=== PATIENT | female | born 1995 | race American Indian/Alaskan Native ===

== ENCOUNTER 2020-09-18 08:34 | Emergency (ER) | payer OTHER ==
[2020-09-18] MEDS ORDERED: LACTATED RINGERS 1,000 ML IV ONE (08:43)
--- NOTE | 2020-09-18 08:44 | Emergency Department Report ---
ED General Adult HPI - General Stated complaint: 4 WEEKS /DEHYDRATION/LIGHT HEADED/WEAK Time Seen by Provider: 09/18/20 08:42 - History of Present Illness Initial comments: 25-year-old -Swiss female patient presents with complaints of nausea and vomiting and weakness x9 days. Patient states she is about 5 weeks and has a history of hyperemesis gravidarum in her previous . She is G2, . She denies any hematemesis/coffee-ground emesis, chest pain, shortness of breath, vaginal bleeding, dysuria/hematuria, dyspareunia/vaginal discharge, or fever/chills/sweats. She does report some abdominal pain that she describes as burning and cramping and rates it as a 7/10 in severity. She is not currently following with an OCCUPATIONAL HEALTH AND SAFETY OFFICER - Related Data Previous Rx's Medication Instructions Recorded Last Taken Type Ondansetron [Zofran Odt] 4 mg PO Q8HR PRN #10 tab.rapdis 10/07/18 Unknown Rx Metoclopramide [Reglan] 10 mg PO TID PRN #40 tab 09/18/20 Unknown Rx diphenhydrAMINE [Benadryl CAP] 25 mg PO TID PRN #40 capsule 09/18/20 Unknown Rx Allergies Allergy/AdvReac Type Severity Reaction Status Date / Time No Known Allergies Allergy Unverified 10/07/18 12:13 ED Review of Systems ROS: Stated complaint: 4 WEEKS /DEHYDRATION/LIGHT HEADED/WEAK Other details as noted in HPI Constitutional: denies: diaphoresis, fever, malaise Respiratory: denies: cough, shortness of breath Cardiovascular: denies: palpitations Gastrointestinal: abdominal pain, nausea, vomiting. denies: diarrhea, constipation, hematemesis, melena, hematochezia Genitourinary: denies: urgency, dysuria, frequency, hematuria, discharge, abnormal menses, dyspareunia Musculoskeletal: denies: back pain Skin: denies: change in color Neurological: denies: headache, numbness, paresthesias Hematological/Lymphatic: denies: swollen glands ED Past Medical Hx - Social History Smoking Status: Current Every Day Smoker Substance Use Type: Marijuana - Medications Home Medications: Home Medications Medication Instructions Recorded Confirmed Last Taken Type Ondansetron [Zofran Odt] 4 mg PO Q8HR PRN #10 tab.rapdis 10/07/18 Unknown Rx Metoclopramide [Reglan] 10 mg PO TID PRN #40 tab 09/18/20 Unknown Rx diphenhydrAMINE [Benadryl CAP] 25 mg PO TID PRN #40 capsule 09/18/20 Unknown Rx ED Physical Exam - General General appearance: alert, in no apparent distress - Head Head exam: Present: atraumatic, normocephalic - Eye Eye exam: Present: normal appearance. Absent: scleral icterus - ENT ENT exam: Present: mucous membranes moist - Neck Neck exam: Present: normal inspection - Respiratory Respiratory exam: Present: normal lung sounds bilaterally. Absent: respiratory distress - Cardiovascular Cardiovascular Exam: Present: normal rhythm, tachycardia - GI/Abdominal GI/Abdominal exam: Present: soft, tenderness (Mild generalized), normal bowel sounds. Absent: distended, guarding, rebound, rigid - Back Exam Back exam: Present: full ROM. Absent: CVA tenderness (R), CVA tenderness (L) - Neurological Exam Neurological exam: Present: alert, oriented X3, normal gait - Psychiatric Psychiatric exam: Present: normal affect, normal mood - Skin Skin exam: Present: warm, dry, intact, normal color. Absent: rash ED Course Vital Signs 09/18/20 09/18/20 09/18/20 08:44 12:28 12:31 Temperature 98.0 F Pulse Rate 125 H 98 H Respiratory 20 Rate Blood Pressure 160/97 98/54 [Right] O2 Sat by Pulse 99 99 Oximetry ED Medical Decision Making - Lab Data Result diagrams: 09/18/20 Unknown 09/18/20 Unknown - Medical Decision Making 25-year-old -Swiss female patient presents with complaints of nausea and vomiting and weakness x9 days. Patient states she is about 5 weeks and has a history of hyperemesis gravidarum in her previous . She is G2, . She denies any hematemesis/coffee-ground emesis, chest pain, shortness of breath, vaginal bleeding, dysuria/hematuria, dyspareunia/vaginal discharge, or fever/chills/sweats. She does report some abdominal pain that she describes as burning and cramping and rates it as a 7/10 in severity. She is not currently following with an OCCUPATIONAL HEALTH AND SAFETY OFFICER Mild abdominal pain noted on exam that is generalized. She denied vaginal bleeding. No significant abnormalities noted on CBC. Anion gap =18. UA is WNL. Heart rate initially 125 upon arrival. Patient given 1 L of LR, Reglan, and Benadryl. Heart rate now = 98. She is tolerating foods and fluids p.o. Ultrasound shows viable 7-week IUP without any abnormalities. Patient states she is feeling well. She is nontoxic appearing and stable for discharge home. Recommend follow-up with OCCUPATIONAL HEALTH AND SAFETY OFFICER within 5 days. Strict return precautions were discussed in detail with patient who verbalizes understanding. Critical care attestation.: If time is entered above; I have spent that time in minutes in the direct care of this critically ill patient, excluding procedure time. ED Disposition Clinical Impression: Hyperemesis gravidarum Disposition: DC- TO HOME OR SELFCARE Is pt being admited?: No Condition: Stable Instructions: Hyperemesis Gravidarum Prescriptions: diphenhydrAMINE [Benadryl CAP] 25 mg PO TID PRN #40 capsule PRN Reason: Nausea Metoclopramide [Reglan] 10 mg PO TID PRN #40 tab PRN Reason: Nausea Referrals: [facility] [Provider Group] - 3-5 Days
[2020-09-18] MEDS ORDERED: METOCLOPRAMIDE 10 MG/2 ML INJ IV ONE (08:48)
[2020-09-18] MEDS ORDERED: diphenhydrAMINE 50 MG/ML VIAL IV ONE (08:48)
[2020-09-18 09:19] LABS: Hematocrit 46.2 % (30.3-42.9); Hemoglobin 15.4 gm/dl (10.1-14.3); Mean Corpuscular Volume 82 fl (79-97); Red Blood Count 5.62 M/mm3 (3.65-5.03)
[2020-09-18 09:20] LABS: Basophils % (Auto) 0.4 % (0.0-1.8); Eosinophils # (Auto) 0.1 K/mm3 (0.0-0.4); Eosinophils % (Auto) 0.6 % (0.0-4.3); Lymphocytes # (Auto) 1.6 K/mm3 (1.2-5.4); Lymphocytes % (Auto) 17.2 % (13.4-35.0); Mean Corpuscular HGB Conc 33 % (30-34); Monocytes # (Auto) 0.6 K/mm3 (0.0-0.8); Monocytes % (Auto) 6.3 % (0.0-7.3); Platelet Count 263 K/mm3 (140-440); Red Cell Distribution Width 15.3 % (13.2-15.2)
[2020-09-18 09:36] LABS: Alanine Aminotransferase 11 units/L (7-56); Albumin 4.5 g/dL (3.9-5); Blood Urea Nitrogen 11 mg/dL (7-17); Calcium 9.8 mg/dL (8.4-10.2); Hemolysis Index 7
[2020-09-18 09:45] LABS: BUN/Creatinine Ratio 18
--- NOTE | 2020-09-18 10:10 | Ultrasound Report ---
FIRSTTRIMESTER OBSTETRIC ULTRASOUND HISTORY: Pain, sore from morning sickness, no sharp pain per patient COMPARISON: None. TECHNIQUE: Routine transabdominal OB ultrasound performed. FINDINGS: Uterus: Mildly enlarged measuring 3.2 x 1.9 x 1.6 cm. Gestational Sac: Well-defined oval shape and intrauterine in location. Yolk Sac: Normal in appearance. Fetus/Embryo: [place]-rump length of 0.96 cm, corresponding to an estimated gestational age of 7 weeks 0 days. Embryonic/ anatomy is too small for evaluation. Embryonic/ cardiac activity: 147bpm Placenta: Too small for evaluation. Amniotic fluid volume: Subjectively appropriate for gestational age. Ovaries: The right ovary is normal in size and appearance with normal blood flow, measuring 3.2 x 1. 9 x 1.6 cm. The left ovary is normal in size and appearance with normal blood flow, measuring 4.1 x 1.5 x 1.5 cm. Additional findings: None. IMPRESSION Early live intrauterine . No acute abnormality is detected. Signer Name: Nato Londono Jr, MD Signed: 09/18/2020 10:06 AM Workstation Name: [id number]
[2020-09-18 11:47] LABS: Bilirubin,Urine NEG (Negative); Blood,Urine NEG (Negative); Color,Urine Yellow (Yellow); Mucus,Urine 3+ /HPF
[2020-09-18 12:31] VITALS: BP 98/54
== END 2020-09-18 12:31 | disposition home or self-care (01) ==
LOC: ED 08:34
DX: O21.0 Mild hyperemesis gravidarum (principal); O99.331 Smoking (tobacco) complicating pregnancy, first trimester; F12.10 Cannabis abuse, uncomplicated; Z79.899 Other long term (current) drug therapy; Z3A.01 Less than 8 weeks gestation of pregnancy
CPT/HCPCS: 36415; 76801; 80053; 81001; 83690; 84702; 85025; 96361; 96374; 96375; 99284; J1200; J2765; J7120

== ENCOUNTER 2021-01-14 08:28 | Emergency (ER) | payer OTHER ==
--- NOTE | 2021-01-14 10:56 | Event Note ---
ED Screening Note ED Screening Note: n/v for 6 days states she cannot tolerate po intake states she feels dehydrated she states she believes she is LNMP November 26 mild abd cramping no diarrhea no fever no vaginal bleeding pmhx gastritis, anxiety +marijuana /P:1/A:2 (one , one miscarriage) This initial assessment/diagnostic orders/clinical plan/treatment(s) is/are subject to change based on patients health status, clinical progression and re- assessment by fellow clinical providers in the ED. Further treatment and workup at subsequent clinical providers discretion. Patient/guardian urged not to elope from the ED as their condition may be serious if not clinically assessed and managed. Initial orders include: labs, ua
[2021-01-14 11:14] LABS: Bilirubin,Urine NEG (Negative); Blood,Urine NEG (Negative); Color,Urine Yellow (Yellow); Mucus,Urine 3+ /HPF; Urobilinogen,Urine < 2.0 mg/dL (<2.0)
[2021-01-14 11:58] LABS: Basophils % (Auto) 0.3 % (0.0-1.8); Eosinophils % (Auto) 0.4 % (0.0-4.3); Hemoglobin 13.6 gm/dl (10.1-14.3); Lymphocytes # (Auto) 1.7 K/mm3 (1.2-5.4); Lymphocytes % (Auto) 15.9 % (13.4-35.0); Mean Corpuscular HGB Conc 33 % (30-34); Mean Corpuscular Volume 81 fl (79-97); Monocytes # (Auto) 0.7 K/mm3 (0.0-0.8); Monocytes % (Auto) 6.1 % (0.0-7.3); Platelet Count 317 K/mm3 (140-440); Red Blood Count 5.08 M/mm3 (3.65-5.03); Red Cell Distribution Width 16.2 % (13.2-15.2)
[2021-01-14 12:19] LABS: Alanine Aminotransferase 12 units/L (7-56); Albumin 4.6 g/dL (3.9-5); Blood Urea Nitrogen 15 mg/dL (7-17); Calcium 9.6 mg/dL (8.4-10.2); Hemolysis Index 0
[2021-01-14 12:20] LABS: BUN/Creatinine Ratio 30
--- NOTE | 2021-01-14 14:43 | Ultrasound Report ---
ULTRASOUND OBSTETRIC Indication: , cramping, vomiting Findings: There is a single, living intrauterine . [place]-rump length = 0.9 cm = 6 weeks, 6 day(s). heart rate is 125 beats per minute. The ovaries are normal. There is no free fluid. Impression: Single, living intrauterine with estimated sonographic age of 6 weeks, 6 day(s). Signer Name: Timi Hernandez MD Signed: 01/14/2021 2:39 PM Workstation Name: [id number]
[2021-01-14] MEDS ORDERED: METOCLOPRAMIDE 10 MG/2 ML INJ IV ONE (14:51)
[2021-01-14] MEDS ORDERED: SODIUM CHLORIDE 0.9% 1000 ML 1,000 ML IV ONE (14:51)
--- NOTE | 2021-01-14 16:12 | Emergency Department Report ---
ED N/V/D HPI - General Chief complaint: Abdominal Pain Stated complaint: DEHYDRATION/VOMITTING/MUSCEL PAIN Time Seen by Provider: 01/14/21 10:54 Source: patient Mode of arrival: Ambulatory Limitations: No Limitations - History of Present Illness Initial comments: This is a 25-year-old female A2 nontoxic, well nourished in appearance, no acute signs of distress presents to the ED with c/o of nausea and vomiting 6 days. Last menstrual cycle November 26, 2020. Patient denies any knowledge of her being . Stated has some pelvic cramping. Patient otherwise denies any other complaints or symptoms. Denies any vaginal bleeding. Denies any upper abdominal pain. Patient describes vomiting as food content. Patient denies any upper abdominal pain, chest pain, short of breath, fever, chills, headache, stiff neck, numbness or tingling. Patient denies any diarrhea or constipation. Denies any blood in stool. Patient denies any recent travels. Patient denies any drug allergies significant past medical history. MD complaint: nausea, vomiting -: days(s) Description of Vomiting: food contents Radiation: none Severity: mild Pain Scale: 2 Quality: cramping Consistency: intermittent Improves with: none Worsens with: none Associated Symptoms: nausea/vomiting. denies: myalgias, chest pain, cough, diaphoresis, fever/chills, headaches, loss of appetite, malaise, rash, dysuria, shortness of breath, syncope, weakness - Related Data Previous Rx's Medication Instructions Recorded Last Taken Type Ondansetron [Zofran Odt] 4 mg PO Q8HR PRN #10 tab.rapdis 10/07/18 Unknown Rx Metoclopramide [Reglan] 10 mg PO TID PRN #40 tab 09/18/20 Unknown Rx diphenhydrAMINE [Benadryl CAP] 25 mg PO TID PRN #40 capsule 09/18/20 Unknown Rx Metoclopramide [Reglan] 10 mg PO Q12H PRN #12 tab 01/14/21 Unknown Rx 21/Iron Fu/Folic Acid 1 each PO DAILY #30 tablet 01/14/21 Unknown Rx [ Complete Caplet] Allergies Allergy/AdvReac Type Severity Reaction Status Date / Time No Known Allergies Allergy Unverified 10/07/18 12:13 ED Review of Systems ROS: Stated complaint: DEHYDRATION/VOMITTING/MUSCEL PAIN Other details as noted in HPI Comment: All other systems reviewed and negative Constitutional: denies: chills, fever Eyes: denies: eye pain, eye discharge, vision change ENT: denies: ear pain, throat pain Respiratory: denies: cough, shortness of breath, wheezing Cardiovascular: denies: chest pain, palpitations Endocrine: no symptoms reported Gastrointestinal: nausea, vomiting. denies: abdominal pain, diarrhea, constipat ion, hematemesis, hematochezia Genitourinary: denies: urgency, dysuria, frequency, hematuria, discharge, abnormal menses, dyspareunia Musculoskeletal: denies: back pain, joint swelling, arthralgia Skin: denies: rash, lesions Neurological: denies: headache, weakness, paresthesias Psychiatric: denies: anxiety, depression Hematological/Lymphatic: denies: easy bleeding, easy bruising ED Past Medical Hx - Past Medical History Previous Medical History?: Yes Hx Psychiatric Treatment: Yes (anxiety) Additional medical history: gastritis - Surgical History Past Surgical History?: No - Social History Smoking Status: Never Smoker Substance Use Type: None - Medications Home Medications: Home Medications Medication Instructions Recorded Confirmed Last Taken Type Ondansetron [Zofran Odt] 4 mg PO Q8HR PRN #10 tab.rapdis 10/07/18 Unknown Rx Metoclopramide [Reglan] 10 mg PO TID PRN #40 tab 09/18/20 Unknown Rx diphenhydrAMINE [Benadryl CAP] 25 mg PO TID PRN #40 capsule 09/18/20 Unknown Rx Metoclopramide [Reglan] 10 mg PO Q12H PRN #12 tab 01/14/21 Unknown Rx 21/Iron Fu/Folic Acid 1 each PO DAILY #30 tablet 01/14/21 Unknown Rx [ Complete Caplet] ED Physical Exam - General Limitations: No Limitations General appearance: alert, in no apparent distress - Head Head exam: Present: atraumatic, normocephalic - Eye Eye exam: Present: normal appearance - Neck Neck exam: Present: normal inspection, full ROM. Absent: tenderness, meningismu s, lymphadenopathy - Respiratory Respiratory exam: Present: normal lung sounds bilaterally. Absent: respiratory distress, wheezes, rales, rhonchi, stridor, chest wall tenderness, accessory muscle use, decreased breath sounds, prolonged expiratory - Cardiovascular Cardiovascular Exam: Present: regular rate, normal rhythm, tachycardia, normal heart sounds. Absent: bradycardia, irregular rhythm, systolic murmur, diastolic murmur, rubs, gallop - GI/Abdominal GI/Abdominal exam: Present: soft, normal bowel sounds. Absent: distended, tenderness, guarding, rebound, rigid, diminished bowel sounds - Extremities Exam Extremities exam: Present: normal inspection, full ROM - Back Exam Back exam: Present: normal inspection, full ROM. Absent: tenderness, CVA tenderness (R), CVA tenderness (L), muscle spasm, paraspinal tenderness, vertebral tenderness, rash noted - Neurological Exam Neurological exam: Present: alert, oriented X3, normal gait - Psychiatric Psychiatric exam: Present: normal affect, normal mood - Skin Skin exam: Present: warm, dry, intact, normal color. Absent: rash ED Course Vital Signs 01/14/21 01/14/21 08:46 16:22 Temperature 98.7 F 98.4 F Pulse Rate 125 H 96 H Respiratory 18 18 Rate Blood Pressure 140/81 Blood Pressure 129/62 [Right] O2 Sat by Pulse 99 100 Oximetry - Reevaluation(s) Reevaluation #1: 01/14/21 16:12 Patient is speaking in full sentences with no signs of distress noted. ED Medical Decision Making - Lab Data Result diagrams: 01/14/21 11:43 01/14/21 11:43 Lab Results 01/14/21 01/14/21 01/14/21 Range/Units 11:43 11:43 11:43 WBC 10.9 (4.5-11.0) K/mm3 RBC 5.08 H (3.65-5.03) M/mm3 Hgb 13.6 (10.1-14.3) gm/dl Hct 41.0 (30.3-42.9) % MCV 81 (79-97) fl MCH 27 L (28-32) pg MCHC 33 (30-34) % RDW 16.2 H (13.2-15.2) % Plt Count 317 (140-440) K/mm3 Lymph % (Auto) 15.9 (13.4-35.0) % [place] % (Auto) 6.1 (0.0-7.3) % Eos % (Auto) 0.4 (0.0-4.3) % Baso % (Auto) 0.3 (0.0-1.8) % Lymph # (Auto) 1.7 (1.2-5.4) K/mm3 [place] # (Auto) 0.7 (0.0-0.8) K/mm3 Eos # (Auto) 0.0 (0.0-0.4) K/mm3 Baso # (Auto) 0.0 (0.0-0.1) K/mm3 Seg Neutrophils % 77.3 H (40.0-70.0) % Seg Neutrophils # 8.4 H (1.8-7.7) K/mm3 Sodium 137 (137-145) mmol/L Potassium 4.7 (3.6-5.0) mmol/L Chloride 97.2 L (98-107) mmol/L Carbon Dioxide 23 (22-30) mmol/L Anion Gap 22 mmol/L BUN 15 (7-17) mg/dL Creatinine 0.5 L (0.6-1.2) mg/dL Estimated GFR > 60 ml/min BUN/Creatinine Ratio 30 % Glucose 66 (65-100) mg/dL Calcium 9.6 (8.4-10.2) mg/dL Total Bilirubin 0.40 (0.1-1.2) mg/dL AST 19 (5-40) units/L ALT 12 (7-56) units/L Alkaline Phosphatase 83 (35-129) units/L Total Protein 8.4 H (6.3-8.2) g/dL Albumin 4.6 (3.9-5) g/dL Albumin/Globulin Ratio 1.2 % Lipase 22 (13-60) units/L HCG, Quant 51441 H (0-4) mIU/mL Urine Color (Yellow) Urine Turbidity (Clear) Urine pH (5.0-7.0) Ur Specific [place] (1.003-1.030) Urine Protein (Negative) mg/dL Urine Glucose (UA) (Negative) mg/dL Urine Ketones (Negative) mg/dL Urine Blood (Negative) Urine Nitrite (Negative) Urine Bilirubin (Negative) Urine Urobilinogen (<2.0) mg/dL Ur Leukocyte Esterase (Negative) Urine WBC (Auto) (0.0-6.0) /HPF Urine RBC (Auto) (0.0-6.0) /HPF U Epithel Cells (Auto) (0-13.0) /HPF Urine Mucus /HPF 01/14/21 Range/Units Unknown WBC (4.5-11.0) K/mm3 RBC (3.65-5.03) M/mm3 Hgb (10.1-14.3) gm/dl Hct (30.3-42.9) % MCV (79-97) fl MCH (28-32) pg MCHC (30-34) % RDW (13.2-15.2) % Plt Count (140-440) K/mm3 Lymph % (Auto) (13.4-35.0) % [place] % (Auto) (0.0-7.3) % Eos % (Auto) (0.0-4.3) % Baso % (Auto) (0.0-1.8) % Lymph # (Auto) (1.2-5.4) K/mm3 [place] # (Auto) (0.0-0.8) K/mm3 Eos # (Auto) (0.0-0.4) K/mm3 Baso # (Auto) (0.0-0.1) K/mm3 Seg Neutrophils % (40.0-70.0) % Seg Neutrophils # (1.8-7.7) K/mm3 Sodium (137-145) mmol/L Potassium (3.6-5.0) mmol/L Chloride (98-107) mmol/L Carbon Dioxide (22-30) mmol/L Anion Gap mmol/L BUN (7-17) mg/dL Creatinine (0.6-1.2) mg/dL Estimated GFR ml/min BUN/Creatinine Ratio % Glucose (65-100) mg/dL Calcium (8.4-10.2) mg/dL Total Bilirubin (0.1-1.2) mg/dL AST (5-40) units/L ALT (7-56) units/L Alkaline Phosphatase (35-129) units/L Total Protein (6.3-8.2) g/dL Albumin (3.9-5) g/dL Albumin/Globulin Ratio % Lipase (13-60) units/L HCG, Quant (0-4) mIU/mL Urine Color Yellow (Yellow) Urine Turbidity Slightly-cloudy (Clear) Urine pH 5.0 (5.0-7.0) Ur Specific [place] 1.031 H (1.003-1.030) Urine Protein 100 mg/dl (Negative) mg/dL Urine Glucose (UA) Neg (Negative) mg/dL Urine Ketones 80 (Negative) mg/dL Urine Blood Neg (Negative) Urine Nitrite Neg (Negative) Urine Bilirubin Neg (Negative) Urine Urobilinogen < 2.0 (<2.0) mg/dL Ur Leukocyte Esterase Neg (Negative) Urine WBC (Auto) 2.0 (0.0-6.0) /HPF Urine RBC (Auto) 4.0 (0.0-6.0) /HPF U Epithel Cells (Auto) 10.0 (0-13.0) /HPF Urine Mucus 3+ /HPF - Radiology Data [facility] [address] [place] [address] Ultrasound Report Signed Patient: THU MELÉNDEZ MR#: [id number] : 1995 Acct:[id number] Age/Sex: 25 / F ADM Date: 01/14/21 Loc: ED Attending Dr: Ordering Physician: LAILA PHAN Date of Service: 01/14/21 Procedure(s): US OB <= 14 weeks fetus Accession Number(s): [id number] cc: LAILA PHAN ULTRASOUND OBSTETRIC Indication: , cramping, vomiting Findings: There is a single, living intrauterine . [place]-rump length = 0.9 cm = 6 weeks, 6 day(s). heart rate is 125 beats per minute. The ovaries are normal. There is no free fluid. Impression: Single, living intrauterine with estimated sonographic age of 6 weeks, 6 day(s). Signer Name: Timi Hernandez MD Signed: 01/14/2021 2:39 PM Workstation Name: [id number] Transcribed By: Dictated By: Timi Hernandez MD Electronically Authenticated By: Timi Hernandez MD Signed Date/Time: 01/14/211438 DD/ 35 TD/TT: - Medical Decision Making This is a 25-year-old female that presents with nausea and vomiting. Patient is stable and was examined by me. There is no abdominal tenderness. Negative signs of symptoms of appendicitis, cholecystitis or acute abdomen. Labs obtained. UA obtained. Patient is notified of the OB ultrasound results with no questions noted by the patient. Vital signs are stable with HR decreased prior to discharge. Patient received Reglan and 1L Normal saline in the ED which patient stated symptoms has resovled and subsided. A by mouth challenge has been obtained and patient tolerated well with no nausea vomiting. Patient was also instructed to Follow-up with a COMPUTERIZED MACHINE FABRIC CUTTER doctor in 3-5 days or if symptoms worsen and continue return to emergency room as soon as possible. At time of disch arge, the patient does not seem toxic or ill in appearance. No acute signs of distress noted. Patient agrees to discharge treatment plan of care. No further questions noted by the patient. Critical care attestation.: If time is entered above; I have spent that time in minutes in the direct care of this critically ill patient, excluding procedure time. ED Disposition Clinical Impression: Hyperemesis gravidarum Disposition: TO HOME OR SELFCARE Is pt being admited?: No Does the pt Need Aspirin: No Condition: Stable Instructions: Hyperemesis Gravidarum, Abdominal Pain (ED) Additional Instructions: Follow-up with a COMPUTERIZED MACHINE FABRIC CUTTER doctor in 3-5 days or if symptoms worsen and continue return to emergency room as soon as possible. Prescriptions: 21/Iron Fu/Folic Acid [ Complete Caplet] 1 each PO DAILY #30 tablet Metoclopramide [Reglan] 10 mg PO Q12H PRN #12 tab PRN Reason: Nausea Referrals: [facility] [Primary Care Provider] - 3-5 Days [facility] [Provider Group] - 3-5 Days [facility] [Provider Group] - 3-5 Days Forms: Work/School Release Form(ED) Time of Disposition: 16:15
[2021-01-14 16:22] VITALS: BP 129/62
== END 2021-01-14 17:06 | disposition home or self-care (01) ==
LOC: ED 08:28
DX: O21.0 Mild hyperemesis gravidarum (principal); F41.9 Anxiety disorder, unspecified; Z3A.01 Less than 8 weeks gestation of pregnancy; Z79.899 Other long term (current) drug therapy
CPT/HCPCS: 36415; 76801; 80053; 81001; 83690; 84702; 85025; 96361; 96374; 99284; J2765; J7030